=== PATIENT | male | born 1970 | race Caucasian/White ===

== ENCOUNTER 2017-12-03 12:39 | Emergency (ER) | payer SELFPAY ==
[~2017-12-03] VITALS: Ht 185.4 cm; Wt 127.0 kg
[~2017-12-03 12:39] MED LIST: AGM875T PO; ASP325T PO; ATR20T PO; AZIT-21 PO; HYDR-3458 PO; HYDR-3720 PO; NAPR220C11 PO
[2017-12-03 13:28] LABS: BASOPHILS % (AUTO) 1 % (0-10); EOSINOPHILS % (AUTO) 0 % (0-10); HEMATOCRIT 40 % (40-54); HEMOGLOBIN 13.2 G/DL (13.3-17.7); LYMPHOCYTES # (AUTO) 3.5 X 10^3 (1.0-4.0); LYMPHOCYTES % (AUTO) 41 % (12-44); MEAN CORPUSCULAR HEMOGLOBIN 31 PG (25-34); MEAN CORPUSCULAR HGB CONC 33 G/DL (32-36); MEAN CORPUSCULAR VOLUME 94 FL (80-99); MEAN PLATELET VOLUME 10.3 FL (7.4-10.4); MONOCYTES # (AUTO) 0.7 X 10^3 (0.0-1.0); MONOCYTES % (AUTO) 8 % (0-12); NEUTROPHILS # (AUTO) 4.3 X 10^3 (1.8-7.8); NEUTROPHILS % (AUTO) 50 % (42-75); PLATELET COUNT 323 10^3/uL (130-400); RED BLOOD COUNT 4.25 10^6/uL (4.35-5.85); WHITE BLOOD COUNT 8.6 10^3/uL (4.3-11.0)
--- NOTE | 2017-12-03 13:38 | Diagnostic Imaging Report ---
Portable erect AP chest at 1:19 Indication. Short of breath. The prior chest exam 09/21/2012 noted cardiomegaly and right lower lobe atelectasis/infiltrate and fluid. On this exam the heart is enlarged but stable when compared to prior study. Sternotomy wires and Surgiclips are again noted. The right lung base is generally clear and well aerated. There is blunting of the right costophrenic angle. This may be secondary to pleural thickening as opposed to a small effusion. The left lung is well aerated. The mediastinum is not widened. The osseous structures are intact. Impression: 1. The appearance of the chest has improved considerably since the prior exam as the right lung base is much better aerated. The blunted appearance of the costophrenic angle could be secondary to pleural thickening or to a small effusion. There is no acute cardiopulmonary abnormality noted otherwise. 2. There is cardiomegaly and evidence of prior cardiac surgery. Dictated by: Dictated on workstation # [id number]
[2017-12-03 13:43] LABS: ALANINE AMINOTRANSFERASE 92 U/L (0-55); ALBUMIN 4.2 GM/DL (3.2-4.5); ALKALINE PHOSPHATASE 60 U/L (40-136); BILIRUBIN,TOTAL 0.9 MG/DL (0.1-1.0); BUN/CREATININE RATIO 13; CALCIUM 9.4 MG/DL (8.5-10.1); CARBON DIOXIDE 26 MMOL/L (21-32); CHLORIDE 103 MMOL/L (98-107); CREATININE SERUM 0.85 MG/DL (0.60-1.30); GFR ESTIMATED > 60; GLUCOSE 118 MG/DL (70-105); POTASSIUM 4.2 MMOL/L (3.6-5.0); SODIUM 140 MMOL/L (135-145); TOTAL PROTEIN 7.4 GM/DL (6.4-8.2)
--- NOTE | 2017-12-03 13:46 | ED General ---
General Chief Complaint: General Problems/Pain Stated Complaint: WEAK,LETHARGIC,SOB,HX OF BYPASS Nursing Triage Note: PATIENT HERE FOR AN ARRAY OF COMPLAINTS. 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 HE COMPLAINS OF SOB, WEAKNESS, FREQUENT SWEATING, BLURRY VISION, ANKLE SWELLING, NUMBNESS IN TOES AND OCCASSIONAL BLOOD WHEN WIPING AFTER A BM. 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 They pulled him off the process got him to drink. He reported that it took about 3 hours for him to drive home and he has not felt well since this time. In discussing his habits for hydration, it would appear there considerably lacking for the weather that we have been having both by amount and type of hydration materials. He complains of headache , muscle weakness, depression and generally decreased performance since that time. Associated Systoms: Diaphoresis, Headaches, Loss of Appetite, Malaise, Shortness of Air Allergies and Home Medications Allergies Coded Allergies: No Known Drug Allergies (Unverified , 03/22/09) Home Medications Amoxicillin/Clavulanate K 1 Tab Tablet, 1 TAB PO BID, (Reported) START 09/22/12 Aspirin 325 Mg Tab, 325 MG PO DAILY, (Reported) TOOK 81MG TODAY Atorvastatin 20 Mg Tablet, 1 EACH PO DAILY, (Reported) Azithromycin 250 Mg Tab, 250 MG PO DAILY, (Reported) START 09/22/12 Naproxen Sodium 220 Mg Capsule, 220 MG PO Q4H PRN, (Reported) FOR PAIN Patient Home Medication List Home Medication List Reviewed: Yes Review of Systems Constitutional: see HPI Respiratory: short of breath Cardiovascular: no symptoms reported Gastrointestinal: loss of appetite, nausea Musculoskeletal: muscle cramps, muscle weakness Skin: no symptoms reported Psychiatric/Neurological: Depressed Hematologic/Lymphatic: No Symptoms Reported Past Wvlzbrw-Txsitn-Aejlnw Hx Patient Social History Alcohol Use: Regular Use Number of Drinks Today: 6 Alcohol Beverage of Choice: Beer, Cheap Liquor Recreational Drug Use: No Smoking Status: Current Everyday Smoker Type Used: Cigarettes 2nd Hand Smoke Exposure: Yes Recent Foreign Travel: No Contact w/Someone Who Travel: No Recent Infectious Disease Expo: No Recent Hopitalizations: No Physical Abuse: No Sexual Abuse: No Past Medical History Surgeries: Yes Respiratory: No Cardiac: Yes (bypass x3) Neurological: No Reproductive Disorders: No Gastrointestinal: No Musculoskeletal: Yes Gout Endocrine: No Cancer: No Psychosocial: No Nursing Suicide Risk Score: 0 Integumentary: No Blood Disorders: No Physical Exam Vital Signs Vital Signs - First Documented 12/03/17 12:45 Temp 97.8 Pulse 99 Resp 20 B/P (MAP) 182/83 (116) Pulse Ox 98 O2 Delivery Room Air Capillary Refill : Less Than 3 Seconds General Appearance: Mild Distress Eyes: Bilateral Eye Normal Inspection HEENT: Normal ENT Inspection Neck: Normal Inspection Respiratory: Chest Non Tender, Lungs Clear, Normal Breath Sounds, No Accessory Muscle Use, No Respiratory Distress Cardiovascular: Regular Rate, Rhythm, No Edema, No Gallop, No JVD, No Murmur, Normal Peripheral Pulses Gastrointestinal: Normal Bowel Sounds, No Organomegaly, No Pulsatile Mass, Non Tender, Soft Extremity: Normal Capillary Refill, Normal Inspection, Normal Range of Motion, Non Tender, No Calf Tenderness Neurologic/Psychiatric: Alert, Oriented x3, No Motor/Sensory Deficits, helmet binder II- XII Norm as Tested, Depressed Affect Skin: Normal Color, Warm/Dry Lymphatic: No Adenopathy Progress/Results/Core Measures Suspected Sepsis Recent Fever Within 48 Hours: No Infection Criteria Present: Suspected New Infection New/Unexplained Altered Menta: No Sepsis Screen: No Definite Risk SIRS Temperature:97.8 Pulse: 99 Respiratory Rate: 20 Laboratory Tests 12/03/17 13:15: White Blood Count 8.6 Blood Pressure 182 /83 Mean: 116 Laboratory Tests 12/03/17 13:15: Creatinine 0.85, Platelet Count 323, Total Bilirubin 0.9 Results/Orders Lab Results Laboratory Tests Test 12/03/17 13:15 Range/Units White Blood Count 8.6 4.3-11.0 10^3/uL Red Blood Count 4.25 L 4.35-5.85 10^6/uL Hemoglobin 13.2 L 13.3-17.7 G/DL Hematocrit 40 40-54 % Mean Corpuscular Volume 94 80-99 FL Mean Corpuscular Hemoglobin 31 25-34 PG Mean Corpuscular Hemoglobin Concent 33 32-36 G/DL Red Cell Distribution Width 13.0 10.0-14.5 % Platelet Count 323 130-400 10^3/uL Mean Platelet Volume 10.3 7.4-10.4 FL Neutrophils (%) (Auto) 50 42-75 % Lymphocytes (%) (Auto) 41 12-44 % Monocytes (%) (Auto) 8 0-12 % Eosinophils (%) (Auto) 0 0-10 % Basophils (%) (Auto) 1 0-10 % Neutrophils # (Auto) 4.3 1.8-7.8 X 10^3 Lymphocytes # (Auto) 3.5 1.0-4.0 X 10^3 Monocytes # (Auto) 0.7 0.0-1.0 X 10^3 Eosinophils # (Auto) 0.0 0.0-0.3 10^3/uL Basophils # (Auto) 0.0 0.0-0.1 10^3/uL Sodium Level 140 135-145 MMOL/L Potassium Level 4.2 3.6-5.0 MMOL/L Chloride Level 103 98-107 MMOL/L Carbon Dioxide Level 26 21-32 MMOL/L Anion Gap 11 5-14 MMOL/L Blood Urea Nitrogen 11 7-18 MG/DL Creatinine 0.85 0.60-1.30 MG/DL Estimat Glomerular Filtration Rate > 60 BUN/Creatinine Ratio 13 Glucose Level 118 H 70-105 MG/DL Calcium Level 9.4 8.5-10.1 MG/DL Total Bilirubin 0.9 0.1-1.0 MG/DL Aspartate Amino Transf (AST/SGOT) 60 H 5-34 U/L Alanine Aminotransferase (ALT/SGPT) 92 H 0-55 U/L Alkaline Phosphatase 60 40-136 U/L Myoglobin 49.9 10.0-92.0 NG/ML Total Protein 7.4 6.4-8.2 GM/DL Albumin 4.2 3.2-4.5 GM/DL My Orders Orders - SHIVA PEREZ MD Cbc With Automated Diff (12/03/17 13:09) Comprehensive Metabolic Panel (12/03/17 13:09) Chest 1 View, Ap/Pa Only (12/03/17 13:09) Troponin I (12/03/17 14:27) Myoglobin Serum (12/03/17 14:27) Vital Signs/I&O 12/03/17 12:45 Temp 97.8 Pulse 99 Resp 20 B/P (MAP) 182/83 (116) Pulse Ox 98 O2 Delivery Room Air Capillary Refill : Less Than 3 Seconds Blood Pressure Mean: 116 Departure Impression Primary Impression: heat exhaustion Disposition: 01 HOME, SELF-CARE Condition: Stable/Unchanged Departure-Patient Inst. Decision time for Depature: 15:36 Referrals: NO,LOCAL PHYSICIAN (PCP) Primary Care Physician Add. Discharge Instructions: All discharge instructions reviewed with patient and/or family. Voiced understanding. Avoid alcohol for at least the next week. Extra attention to hydration and staying out of heat situations. It may be useful to have a current echocardiogram for evaluation of your cardiac performance. SHIVA PEREZ MD Dec 03, 2017 13:46
[2017-12-03 15:32] LABS: MYOGLOBIN SERUM 49.9 NG/ML (10.0-92.0)
[2017-12-03 16:00] VITALS: BP 182/83
== END 2017-12-03 16:00 | disposition home or self-care (01) ==
LOC: EDUNIT# 12:39 → ER 12:42
DX: T67.5XXA Heat exhaustion, unspecified, initial encounter (principal); F10.10 Alcohol abuse, uncomplicated; M10.9 Gout, unspecified; F17.210 Nicotine dependence, cigarettes, uncomplicated; Z95.1 Presence of aortocoronary bypass graft; Z79.82 Long term (current) use of aspirin; X30.XXXA Exposure to excessive natural heat, initial encounter
CPT/HCPCS: 36415; 71045; 80053; 83874; 84484; 85025; 93005